=== PATIENT | male | born 1970 | race Caucasian/White ===

== ENCOUNTER → 2017-10-03 | Outpatient (CLI) | payer OTHER ==
[~2017-10-03] MED LIST: BACTRIM DS TAB1 EACH PO; CELEBREX 200 M200 M1 PO; HYDROCODONE-AP1 EAC6 PO; TRAMADOL 50 MG50 MG PO; ZOFRAN ODT4 MG PO
--- NOTE | 2017-10-17 01:10 | CON ---
[address] [address] CONSULTATION Name: GIULIANA LOMBARDO [id number] Admission: 10/03/17 Attend Phys: Deion Campbell MD Discharge: Date of : 74 Report #: [id number] THIS REPORT FOR: //name// CC: Deion Adams MD DATE OF SERVICE: 10/03/2017 [facility] RADIATION ONCOLOGY CONSULTATION PRIMARY SITE AND HISTOPATHOLOGY: He appears to have a clinical stage I, ([id number]) prostate cancer with a PSA of 1.9 and a Rossford score of 3+3 equals 6. HISTORY OF PRESENT ILLNESS: The patient indicated that he was undergoing a workup for a low testosterone level and so he was starting to receive testosterone supplements, and his PSA started going up. Then when the testosterone was stopped, his PSA went down, but then started going up again. So, then he went ahead and had and he underwent a biopsy of the prostate on 08/22/2017 and 09/29 cores were involved with prostate cancer and the Marleny score was 3+3 equals 6. About 5% of those cores were involved with the prostate cancer. His PSA was 1.9 on 07/02/2017. He does not really have any significant symptoms. He has nocturia 1-2 times a night. He is emptying his bladder well. He has a bowel movement about every other day. He presents to discuss treatment options. PAST MEDICAL HISTORY AND PAST SURGICAL HISTORY: He was treated for a fracture of the left femur. He was treated for a torn meniscus. He also had right shoulder operation. MEDICATIONS: Tramadol and Celebrex. ALLERGIES: He has no known drug allergies. FAMILY HISTORY: Father had prostate cancer and received radiation therapy for prostate cancer and his maternal grandmother had skin cancer. Maternal grandfather had skin cancer. SOCIAL HISTORY: The patient is in the [employer]. He is . He has 4 daughters and 1 son. Ethanol, he does not drink alcohol containing drinks at this time, he had in the past. Cigarettes, he smokes less than a pack a day, he started smoking when he was in his late 20s. REVIEW OF SYSTEMS: GENERAL: He denied having [place] [address] CONSULTATION Name: GIULIANA LOMBARDO mEy Room: [facility]#: [id number] Admission: 10/03/17 Attend Phys: Deion Campbell MD Discharge: Date of : 74 Report #: [id number] SKIN: He denied having color changes or itching. LYMPH NODES: He denied having enlarged or painful glands in the neck. ENDOCRINE: He denied having any hot or cold intolerance. HEMATOLOGY/IMMUNOLOGY: He denied having any anemia or recent bleeding. MUSCULOSKELETAL: He has arthritis mostly in his knees, they are painful. HEAD AND NECK: He denied having headaches. RESPIRATORY: He denied having shortness of breath. CARDIOVASCULAR: He denied having any palpitations. GASTROINTESTINAL: He denied having nausea or vomiting. NEUROLOGIC: He denied any focal weakness. PHYSICAL EXAMINATION: VITAL SIGNS: Height was 5 feet 10 inches, weight 217.4 pounds, blood pressure 138/84, pulse 82, respirations 20. GENERAL PSYCHIATRIC: He was alert, oriented and in no acute distress. LYMPH NODES: He had no palpable cervical or supraclavicular lymphadenopathy. EYES: Pupils were equal, round, reactive to light and accommodation. HEAD, EARS, NOSE AND THROAT: Mouth had no visible lesions. HEART: Had a regular rate and rhythm without murmur. LUNGS: were clear to auscultation. ABDOMEN: Not tender, spleen was not palpable. Liver was at the costal margin. EXTREMITIES: He had no clubbing, cyanosis or edema. RECTAL: He was offered a digital rectal examination, but he declined that. LABORATORY DATA: PSA was 1.9 on 07/02/2017 and then he also had a white blood cell count of 7.9, hemoglobin 16.5, platelets 190,000. Glucose of 87, BUN 10, creatinine 1.0, AST 19, ALT 29, alkaline phosphatase 70, and calcium 9.1. ASSESSMENT AND PLAN: The patient has findings consistent with a stage 1 prostate cancer. He was told his options include observation versus surgical resection( prostatectomy) versus radiation therapy versus testosterone suppression. In terms of radiation therapy that can be administered in different ways. It can be given over approximately 6-8 weeks on a daily basis. I told him I can also refer him to the main hospital where they can also possibly offer the option of stereotactic treatments, which could consist of as few as approximately 5 treatments and/or permanent radioactive seed implants. The efficacy of external beam radiation therapy can be found in series from Dr. Anderson; for low risk cancer, the 8-year biochemical clinical freedom from failure was about 88%. The risks, benefits, logistics of radiation therapy were discussed with the patient in detail. He is pretty much leaning towards going forward with radiation therapy. I told him to inform me of where [place] [address] CONSULTATION Name: GIULIANA LOMBARDO Room: [facility]#: [id number] Admission: 10/03/17 Attend Phys: Deion Campbell MD Discharge: Date of : 74 Report #: [id number] Thank you very much for this consult. <ELECTRONICALLY SIGNED> By: Deion Campbell MD 10/17/17 0110 [id number] Campbell MD /nt
--- NOTE | 2017-11-02 15:34 | ONC ---
[address] [address] RADIATION ONCOLOGY NOTE Name: GIULIANA LOMBARDO Room: [facility]#: [id number] Admission: 10/03/17 Attend Phys: Deion Campbell MD Discharge: Date of : 74 Report #: [id number] THIS REPORT FOR: //name// CC: Deion Adams DO DATE OF VISIT: 10/22/2017 [facility] REFERRING PHYSICIANS: Yuliana Adams DO and Kameron Howard MD PRIMARY SITE AND HISTOPATHOLOGY: The patient has a clinical stage 1, T1c N0 M0, prostate cancer with a PSA of 1.9, Marleny score 3+3 equal 6. INTERVAL NOTE: The patient has decided he wants to proceed with radiation therapy. SOCIAL HISTORY: He smokes less than a pack per day and has done so since . REVIEW OF SYSTEM: RESPIRATORY: The patient was not short of breath. SKIN: He had no color changes of the skin. PHYSICAL EXAMINATION: GENERAL/PSYCHIATRIC: The patient was alert and oriented. SKIN: had no color changes. ASSESSMENT/PLAN: So the risks, benefits, logistics of radiation therapy for prostate cancer were discussed with the patient in detail. He gave his witnessed informed consent to proceed with radiation therapy. He will be a good candidate for intensity modulated radiation therapy. He will be scheduled for simulation for radiation therapy. Thank you for allowing me to participate in the care of this patient. <ELECTRONICALLY SIGNED> By: Deion Campbell MD 11/02/17 1534 [id number] 1921Dmadhuri Campbell MD /nt
== END ==
LOC: M.RTH 01:03
DX: C61 Malignant neoplasm of prostate (principal)

== ENCOUNTER → 2017-11-11 | Outpatient (CLI) | payer OTHER ==
[2017-11-11] VITALS (9 sets, daily range): BP systolic 100–130; BP diastolic 56–87
[~2017-11-11] VITALS: Ht 175.3 cm; Wt 90.7 kg
[2017-11-11 08:12] LABS: HEMATOCRIT 47.7 % (42.0-52.0); HEMOGLOBIN 16.5 gm/dL (14.0-18.0); MCH 30.8 pg (26.0-34.0); MCHC 34.5 g/dL (28.0-37.0); MCV 89.2 fL (80.0-100.0); MPV 8.5 fl. (7.2-11.1); RBC 5.35 mil/uL (4.50-6.00); WBC 7.2 thou/uL (4.0-11.0)
[2017-11-11 08:21] LABS: APTT 26.1 Seconds (25.0-31.3)
== END | disposition home or self-care (01) ==
LOC: M.ULTRA 07:31
PROVIDERS: Radiology Diagnostic Radiology
DX: C61 Malignant neoplasm of prostate (principal); F17.210 Nicotine dependence, cigarettes, uncomplicated

== ENCOUNTER 2017-11-17 14:47 | Emergency (ER) | payer OTHER ==
[~2017-11-17] VITALS: Ht 175.3 cm; Wt 90.7 kg
[~2017-11-17 14:47] MED LIST changes: -BACTRIM DS TAB1 EACH PO; -HYDROCODONE-AP1 EAC6 PO; -ZOFRAN ODT4 MG PO
[2017-11-17 16:16] LABS: URINE BILIRUBIN NEGATIVE (Negative); URINE BLOOD 2+ (Negative); URINE CLARITY CLEAR; URINE COLOR YELLOW; URINE GLUCOSE-RANDOM NEGATIVE (Negative); URINE KETONES NEGATIVE (Negative); URINE NITRITE-REFLEX NEGATIVE (Negative); URINE PROTEIN NEGATIVE (Negative); URINE SPECIFIC GRAVITY <= 1.005 (1.005-1.030); URINE UROBILINOGEN 0.2 E.U./dl (0.2-1.0)
[2017-11-17 16:17] LABS: URINE LEUKOCYTES-REFLEX 2+ (Negative)
[2017-11-17 16:21] LABS: HEMATOCRIT 48.9 % (42.0-52.0); HEMOGLOBIN 16.9 gm/dL (14.0-18.0); MCH 31.1 pg (26.0-34.0); MCHC 34.5 g/dL (28.0-37.0); MPV 8.2 fl. (7.2-11.1); NUCLEATED RBCS 0 /100WBC; PLATELET COUNT* 189 thou/uL (150-400); RBC 5.43 mil/uL (4.50-6.00); RDW-CV 12.8 % (10.5-14.5); WBC 15.1 thou/uL (4.0-11.0)
[2017-11-17 16:27] LABS: CASTS None Seen /LPF (None Seen); MUCUS None Seen strn/LPF (None Seen); SQUAMOUS 0-3 Few /LPF (0-3); URINE WBC-REFLEX 6-15 Few /HPF (0-5); WBC CLUMPS Few (None Seen)
[2017-11-17 16:28] LABS: CRYSTALS None Seen /LPF (None Seen)
[2017-11-17 16:33] LABS: CALCIUM 9.5 mg/dL (8.5-10.1); CREATININE 1.1 mg/dL (0.6-1.3); POTASSIUM 3.8 mmol/L (3.5-5.1)
[2017-11-17 16:38] LABS: ALBUMIN 3.9 g/dL (3.4-5.0); TOTAL BILIRUBIN 0.7 mg/dL (<0.1-1.0); TOTAL PROTEIN 8.2 g/dL (6.4-8.2)
[2017-11-17 17:05] LABS: ABSOLUTE LYMPHOCYTES 1.5 thou/uL (0.8-5.3); ABSOLUTE MONOCYTES 0.6 thou/uL (0.0-1.2)
[2017-11-17 17:07] LABS: PLATELET ESTIMATE ADEQUATE
[2017-11-17] MEDS ORDERED: ZOFRAN ODT4 MG PO (18:05)
[2017-11-17] MEDS ORDERED: BACTRIM DS TAB1 EACH PO (18:05)
[2017-11-17] MEDS ORDERED: HYDROCODONE-AP1 EAC6 PO (18:05)
[2017-11-17 18:23] VITALS: BP 117/77
== END 2017-11-17 18:24 | disposition home or self-care (01) ==
LOC: M.ERS 14:47
PROVIDERS: Physician Assistant
DX: N30.00 Acute cystitis without hematuria (principal); Z85.46 Personal history of malignant neoplasm of prostate

== ENCOUNTER → 2018-10-29 | Outpatient (CLI) | payer OTHER ==
[~2018-10-29] MED LIST changes: +BACTRIM DS TAB1 EACH PO; +HYDROCODONE-AP1 EAC6 PO; +ZOFRAN ODT4 MG PO
== END ==
LOC: M.CT 07:06
DX: K76.0 Fatty (change of) liver, not elsewhere classified (principal); J98.4 Other disorders of lung; J98.11 Atelectasis; R19.5 Other fecal abnormalities

== ENCOUNTER 2018-12-20 14:25 | Emergency (ER) | payer OTHER ==
[~2018-12-20] VITALS: Ht 175.3 cm; Wt 90.7 kg
[2018-12-20] MEDS ORDERED: LIORESAL 10 MG10 MG PO (14:52)
[2018-12-20] MEDS ORDERED: WELLBUTRIN SR150 MG PO (14:52)
[2018-12-20] MEDS ORDERED: NORCO 5-325 TA1 EACH PO (17:26)
[2018-12-20 17:38] VITALS: BP 130/74
== END 2018-12-20 17:38 | disposition home or self-care (01) ==
LOC: M.ERS 14:25
DX: S80.12XA Contusion of left lower leg, initial encounter (principal); S90.02XA Contusion of left ankle, initial encounter; Z85.46 Personal history of malignant neoplasm of prostate; X58.XXXA Exposure to other specified factors, initial encounter; Y92.89 Other specified places as the place of occurrence of the external cause; Y93.89 Activity, other specified; Y99.8 Other external cause status